=== PATIENT | male | born 1950 | race Caucasian/White ===

== ENCOUNTER 2017-01-21 14:05 | Emergency (ER) | payer MEDICARE, BC, OTHER ==
[2017-01-21 14:19] VITALS: BP 137/75
--- NOTE | 2017-01-21 14:52 | EDM.PDOC ---
ED HPI Trauma - General Chief Complaint: Lower Extremity Injury/Pain Stated Complaint: Foot pain Time Seen by Provider: 01/21/17 14:30 Source: Reports: Patient, Old records, RN notes reviewed History Limitations: Reports: No limitations - History of Present Illness INITIAL COMMENTS - FREE TEXT/NARRATIVE: 66 year old male presents to the ED today with right medial mid-foot pain for the past 24 hours. The area is red and warm to touch. He rates the pain 8/10 and is worse when bearing weight. He had no injury to the foot. He had similar symptoms in September of this year and was diagnosed with gout. He improved with NSAIDs and was doing well until now. No fever or chills. No additional joint pain. Allergies/ADRs: Allergies No Known Allergies Allergy (Verified 01/21/17 14:11) Home Medications: Ambulatory Orders Aspirin 80 mg PO DAILY 10/09/16 [Confirmed 01/21/17] Lisinopril 20 mg PO DAILY 10/09/16 [Confirmed 01/21/17] Metoprolol Succinate [Toprol XL] 25 mg PO WITHBREAKFAST 10/09/16 [Confirmed ] atorvaSTATin [Lipitor] 20 mg PO DAILY 10/09/16 [Confirmed 01/21/17] Ciclopirox/Nail Lacquer Removr [Cnl 8 Nail Kit] 1 applic TP DAILY #1 kit predniSONE [Prednisone] 40 mg PO DAILY #10 tablet 01/21/17 Past Medical History HEENT History: Reports: Impaired vision Cardiovascular History: Reports: Hypertension Musculoskeletal History: Reports: Osteoarthritis - Past Surgical History Cardiovascular Surgical History: Reports: Carotid stents GI Surgical History: Reports: Colonoscopy Other Neurological Surgeries/Procedures: low back pain Social & Family History - Family History Family Medical History: Noncontributory - Tobacco Use Smoking Status *Q: Never Smoker - Caffeine Use Caffeine Use: Reports: Coffee - Recreational Drug Use Recreational Drug Use: No Review of Systems - Review of Systems Review Of Systems: See Below Constitutional: Reports: no symptoms. Denies: chills, fever Respiratory: Reports: No Symptoms. Denies: Shortness of Breath Cardiovascular: Denies: chest pain Musculoskeletal: Reports: foot pain Skin: Reports: erythema. Denies: bruising Neurological: Reports: No Symptoms. Denies: Numbness, Tingling, Weakness Trauma Exam - Physical Exam Exam: See Below Exam Limited By: No limitations General Appearance: Reports: alert, WD/WN, no apparent distress Respiratory Exam: Reports: no respiratory distress, lungs clear, normal breath sounds Cardiovascular: Reports: regular rate, rhythm Extremities: Reports: no evidence of injury, normal range of motion, no pedal edema, tenderness (right medial foot ), other (erythema noted to right medial mid-foot. no deformity. CMS intact. ) Neurologic: Reports: no motor/sensory deficits, alert, normal mood/affect Course - Vital Signs Last Recorded V/S: Last Vital Signs Temp 97.8 F 01/21/17 14:16 Pulse 71 01/21/17 14:16 Resp 18 01/21/17 14:16 BP 137/75 01/21/17 14:16 Pulse Ox 99 01/21/17 14:16 - Re-Assessments/Exams Free Text/Narrative Re-Assessment/Exam: Will treat with Prednisone. Offered pain medication but patient declined. He is also requesting medication for toenail fungus. [facility] Discharge instructions as documented. Departure - Departure Time of Disposition: 14:45 Disposition: Home, Self-Care 01 Condition: good Clinical Impression: Onychomadesis of toenail Gout attack Qualifiers: Gout site: foot Gout etiology: unspecified cause Laterality: right Qualified Code(s): M10.9 - Gout, unspecified Prescriptions: Ciclopirox/Nail Lacquer Removr [Cnl 8 Nail Kit] 1 applic TP DAILY #1 kit predniSONE [Prednisone] 40 mg PO DAILY #10 tablet Instructions: Gout Forms: ED Department Discharge Additional Instructions: Prednisone 40mg daily for 5 days Hold aspirin while taking prednisone No Ibuprofen or naproxyn while on prednisone Tylenol 1000mg every 8 hours as needed for pain Return to ER if symptoms worsen [facility] Ciclopirox 8% topical solution to toe nails once a day. Nail fungus can take months to resolve.
== END 2017-01-21 15:15 | disposition home or self-care (01) ==
LOC: JD.ED 14:05
DX: L60.8 Other nail disorders (principal); M10.9 Gout, unspecified; I10 Essential (primary) hypertension; Z79.82 Long term (current) use of aspirin; Z79.899 Other long term (current) drug therapy
CPT/HCPCS: 99283

== ENCOUNTER 2017-03-31 09:50 | Emergency (ER) | payer MEDICARE, BC, OTHER ==
--- NOTE | 2017-03-31 10:42 | EDM.PDOC ---
ED HPI GENERAL MEDICAL PROBLEM - General Chief Complaint: ENT Problem Stated Complaint: SORE THROAT Time Seen by Provider: 03/31/17 10:17 Source of Information: Reports: Patient, RN Notes Reviewed - History of Present Illness INITIAL COMMENTS - FREE TEXT/NARRATIVE: 66-year-old male comes in with sore throat. This started about 5-7 days ago but has become much more uncomfortable the past 2 or 3 days. Increased pain with swallowing. There's been some very slight nasal and sinus congestion but nothing major. No fever or chills. Occasional nonproductive cough. Middle Throat Pain Score (Numeric/FACES): 9 - Related Data Allergies Allergy/AdvReac Type Severity Reaction Status Date / Time No Known Allergies Allergy Verified 03/31/17 10:07 Home Meds: Home Meds Aspirin 80 mg PO DAILY 10/09/16 [History] Lisinopril 20 mg PO DAILY 10/09/16 [History] Metoprolol Succinate [Toprol XL] 25 mg PO WITHBREAKFAST 10/09/16 [History] atorvaSTATin [Lipitor] 20 mg PO DAILY 10/09/16 [History] Past Medical History HEENT History: Reports: Impaired Vision Cardiovascular History: Reports: Stents Respiratory History: Reports: None Gastrointestinal History: Reports: None Genitourinary History: Reports: None Musculoskeletal History: Reports: Osteoarthritis Neurological History: Reports: None Psychiatric History: Reports: None Endocrine/Metabolic History: Reports: None Hematologic History: Reports: None Oncologic (Cancer) History: Reports: None Dermatologic History: Reports: None - Infectious Disease History Infectious Disease History: Reports: None - Past Surgical History Cardiovascular Surgical History: Reports: Carotid Stents GI Surgical History: Reports: Colonoscopy Other Neurological Surgeries/Procedures: low back pain Social & Family History - Family History Family Medical History: Noncontributory - Tobacco Use Smoking Status *Q: Former Smoker Years of Tobacco use: 18 Packs/Tins Daily: 1 Used Tobacco, but Quit: Yes Month Tobacco Last Used: sep 1999 - Caffeine Use Caffeine Use: Reports: Coffee - Recreational Drug Use Recreational Drug Use: No ED ROS ENT - Review of Systems Review Of Systems: See Below Constitutional: Denies: Fever, Chills HEENT: Reports: Throat Pain. Denies: Sinus Problem Respiratory: Reports: Cough. Denies: Shortness of Breath, Pleuritic Chest Pain Cardiovascular: Denies: Chest Pain GI/Abdominal: Denies: Abdominal Pain, Nausea, Vomiting Musculoskeletal: Reports: No Symptoms Skin: Reports: No Symptoms Neurological: Reports: No Symptoms ED EXAM, ENT - Physical Exam Exam: See Below General Appearance: Alert, Mild Distress Nose: Normal Inspection Mouth/Throat: Throat Pain (Posterior throat is inflamed, there are some very small areas of vesiculation type lesions present) Head: Atraumatic. No: Facial Swelling Neck: Supple. No: Lymphadenopathy (L), Lymphadenopathy (R) Respiratory/Chest: No Respiratory Distress, Lungs Clear, Normal Breath Sounds Cardiovascular: Regular Rate, Rhythm Extremities: Normal Inspection, Normal Range of Motion Neurological: Alert, Oriented, No Motor/Sensory Deficits Skin: Warm, Dry, Normal Color Course - Vital Signs Last Recorded V/S: Last Vital Signs Temp 97.9 F 03/31/17 10:10 Pulse 66 03/31/17 10:10 Resp 16 03/31/17 10:10 BP 121/77 03/31/17 10:10 Pulse Ox 98 03/31/17 10:10 - Re-Assessments/Exams Free Text/Narrative Re-Assessment/Exam: 03/31/17 10:50 Posterior throat is quite inflamed. I am going to start him on Pen-Vee K 500 mg 4 times a day for 1 week although this could well be summer viral type infection with a few scattered lesions posterior throat along with quite markedly erythema. Also going to prescribe some miracle mouthwash to use every 4 -6 hours as needed. These prescriptions have been called in to [facility]. Departure - Departure Time of Disposition: 10:42 Disposition: Home, Self-Care 01 Condition: Fair Clinical Impression: Pharyngitis Qualifiers: Pharyngitis/tonsillitis etiology: unspecified etiology Qualified Code(s): J02.9 - Acute pharyngitis, unspecified - Discharge Information Referrals: PCP,None [Primary Care Provider] - Forms: ED Department Discharge Additional Instructions: PenVK 500 mg 4 times daily for 1 week or until gone, miracle mouthwash 1-2 teaspoons, swish, gargle, spit every 4-6 hours for throat discomfort as needed, alternate Tylenol and ibuprofen as needed, symptoms should gradually resolve over the next 3-5 days, follow-up clinic as needed, return to ED as needed. [facility]
== END 2017-03-31 11:11 | disposition home or self-care (01) ==
LOC: JD.ED 09:50
CPT/HCPCS: 99282; 99283

== ENCOUNTER 2017-12-04 14:51 | Emergency (ER) | payer MEDICARE, OTHER ==
[2017-12-04 15:12] VITALS: BP 125/75
--- NOTE | 2017-12-04 15:47 | EDM.PDOC ---
ED HPI GENERAL MEDICAL PROBLEM - General Chief Complaint: Cardiovascular Problem Stated Complaint: RACING HEART Time Seen by Provider: 12/04/17 15:03 Source of Information: Reports: Patient History Limitations: Reports: No Limitations - History of Present Illness INITIAL COMMENTS - FREE TEXT/NARRATIVE: 67 y/o M with palpitations, sent from [facility] for eval. States he has had a cough for a few days. Not productive, no fever, no SOB. Saw PCP at [facility] and mentioned that he's also had palpitations so was sent here for eval of palpitations. States he's had occasional brief episodes of feeling like his heart is racing and irregular. no provoking factor. Had episode this AM while at rest that lasted a few minutes. No chest pain. No SOB. No syncope or pre- syncope. No lower extremity pain/swelling. No recent change in medications. Drinks around 4 cups of coffee daily, has been doing this for years. - Related Data Allergies Allergy/AdvReac Type Severity Reaction Status Date / Time No Known Allergies Allergy Verified 03/31/17 10:07 Home Meds: Home Meds Aspirin 80 mg PO DAILY 10/09/16 [History] Lisinopril 20 mg PO DAILY 10/09/16 [History] Metoprolol Succinate [Toprol XL] 25 mg PO WITHBREAKFAST 10/09/16 [History] atorvaSTATin [Lipitor] 20 mg PO DAILY 10/09/16 [History] Clopidogrel Bisulfate [Clopidogrel] 75 mg PO ACDINNER 12/04/17 [History] Past Medical History HEENT History: Reports: Impaired Vision Cardiovascular History: Reports: Stents Respiratory History: Reports: None Gastrointestinal History: Reports: None Genitourinary History: Reports: None Musculoskeletal History: Reports: Osteoarthritis Neurological History: Reports: None Psychiatric History: Reports: None Endocrine/Metabolic History: Reports: None Hematologic History: Reports: None Oncologic (Cancer) History: Reports: None Dermatologic History: Reports: None - Infectious Disease History Infectious Disease History: Reports: None - Past Surgical History Cardiovascular Surgical History: Reports: Carotid Stents GI Surgical History: Reports: Colonoscopy Other Neurological Surgeries/Procedures: low back pain Social & Family History - Family History Family Medical History: Noncontributory - Tobacco Use Smoking Status *Q: Unknown Ever Smoked Years of Tobacco use: 18 Packs/Tins Daily: 1 Used Tobacco, but Quit: Yes Month/Year Tobacco Last Used: sep 1999 - Caffeine Use Caffeine Use: Reports: None - Recreational Drug Use Recreational Drug Use: No ED ROS GENERAL - Review of Systems Review Of Systems: See Below Constitutional: Reports: Malaise. Denies: Fever HEENT: Reports: No Symptoms Respiratory: Reports: Cough. Denies: Shortness of Breath Cardiovascular: Denies: Chest Pain, Edema, Syncope Endocrine: Reports: No Symptoms GI/Abdominal: Denies: Diarrhea, Vomiting Neurological: Denies: Dizziness ED EXAM, GENERAL - Physical Exam Exam: See Below Exam Limited By: No Limitations General Appearance: Alert, WD/WN, No Apparent Distress Eye Exam: Bilateral Eye: Normal Inspection Ears: Normal External Exam Nose: Normal Inspection, Normal Mucosa Throat/Mouth: Normal Inspection, Normal Oropharynx, Normal Voice Head: Atraumatic, Normocephalic Neck: Normal Inspection, Supple Respiratory/Chest: No Respiratory Distress, Lungs Clear, Normal Breath Sounds, Chest Non-Tender Cardiovascular: Normal Peripheral Pulses, Regular Rate, Rhythm, No Edema, No Gallop, No Murmur GI/Abdominal: Soft, Non-Tender, No Distention Neurological: Alert, Oriented, Normal Cognition, No Motor/Sensory Deficits Psychiatric: Normal Affect, Normal Mood Skin Exam: Warm, Dry, Intact, Normal Color, No Rash Course - Vital Signs Last Recorded V/S: Last Vital Signs Temp 36.8 C 12/04/17 15:07 Pulse 66 12/04/17 15:07 Resp 18 12/04/17 15:07 BP 125/75 12/04/17 15:07 Pulse Ox 100 12/04/17 15:07 - Orders/Labs/Meds Orders: Active Orders 24 hr Category Date Time Status EKG 12 Lead [EKG Documentation Completion] [RC] STAT Care 12/04/17 15:14 Active Chest 2V [CR] Stat Exams 12/04/17 15:41 Taken Labs: Laboratory Tests 12/04/17 12/04/17 12/04/17 Range/Units 15:23 15:23 15:23 WBC 7.39 (4.23-9.07) K/mm3 RBC 4.69 (4.63-6.08) M/mm3 Hgb 14.5 (13.7-17.5) gm/L Hct 42.2 (40.1-51.0) % MCV 90.0 (79.0-92.2) fl MCH 30.9 (25.7-32.2) pg MCHC 34.4 (32.2-35.5) g/dl RDW Std Deviation 44.1 H (35.1-43.9) fL Plt Count 166 (163-337) K/mm3 MPV 10.4 (9.4-12.3) fl Neut % (Auto) 54.5 (34.0-67.9) % Lymph % (Auto) 24.9 (21.8-53.1) % [place] % (Auto) 16.5 H (5.3-12.2) % Eos % (Auto) 3.8 (0.8-7.0) Baso % (Auto) 0.3 (0.1-1.2) % Neut # (Auto) 4.03 (1.78-5.38) K/mm3 Lymph # (Auto) 1.84 (1.32-3.57) K/mm3 [place] # (Auto) 1.22 H (0.30-0.82) K/mm3 Eos # (Auto) 0.28 (0.04-0.54) K/mm3 Baso # (Auto) 0.02 (0.01-0.08) K/mm3 Manual Slide Review Normal smear Sodium 141 (136-145) mEq/L Potassium 3.6 (3.5-5.1) mEq/L Chloride 105 (98-107) mEq/L Carbon Dioxide 25 (21-32) mEq/L Anion Gap 14.6 (5-15) BUN 24 H (7-18) mg/dL Creatinine 1.0 (0.7-1.3) mg/dL Est Cr Clr Drug Dosing 74.01 mL/min Estimated GFR (MDRD) > 60 (>60) mL/min BUN/Creatinine Ratio 24.0 H (14-18) Glucose 108 (80-115) mg/dL Calcium 9.3 (8.5-10.1) mg/dL Magnesium 1.7 L (1.8-2.4) mg/dl Total Bilirubin 0.5 (0.2-1.0) mg/dL AST 20 (15-37) U/L ALT 24 (16-63) U/L Alkaline Phosphatase 80 (46-116) U/L Troponin I < 0.017 (0.00-0.056) ng/mL NT-Pro-B Natriuret Pep 149 H (0-125) pg/mL Total Protein 6.9 (6.4-8.2) g/dl Albumin 3.8 (3.4-5.0) g/dl Globulin 3.1 gm/dL Albumin/Globulin Ratio 1.2 (1-2) Meds: Medications Discontinued Medications Generic Name Dose Route Start Last Admin Trade Name Samantha PRN Reason Stop Dose Admin Magnesium Oxide 800 mg 12/04/17 16:38 12/04/17 16:50 Magnesium Oxide PO 12/04/17 16:39 800 mg ONETIME ONE Administration - Re-Assessments/Exams Free Text/Narrative Re-Assessment/Exam: 12/04/17 15:43 EKG shows NSR with occasional PVC's. No evidence of ischemia or arrhythmia at this time. Intervals normal. On the monitor, there are rare PVC's. His HR is in the 60's. He is well appearing and has had no chest pain, shortness of breath, pre-syncope, or any other concerning symptoms. His caffeine intake is significant (4 cups of coffee daily) but this is no change compared to prior. Discussed that he could try to reduce caffeine to see if palpitations improve. If labs OK will dc, he can f/u with PCP for further workup as needed. 12/04/17 16:55 CXR shows no acute abnormality. Discussed results with patient. He continues to feel well. On monitor still NSR, no PVC's while I was in the room. Magnesium minimally low at 1.7, will replete with oral mag and encouraged pt to have this rechecked by PCP. He's not on a diuretic. Discussed return precautions. Departure - Departure Time of Disposition: 16:30 Disposition: Home, Self-Care 01 Clinical Impression: Palpitations, PVCs (premature ventricular contractions) Instructions: Premature Ventricular Contraction, Palpitations, [id number] Referrals: Ilana Love DO [Primary Care Provider] - Forms: ED Department Discharge Additional Instructions: 1. [facility] for further care, ideally in 1-2 weeks. Meanwhile, try to reduce caffeine intake. Your magnesium level was slightly low - ask your primary care provider to recheck it at your next followup visit. 2. Return to the ED if you have: - lightheadedness/feeling like you're going to pass out - chest pain - difficulty breathing - swelling in your legs - any other concerning symptoms - My Orders Last 24 Hours: My Active Orders 12/04/17 15:14 EKG 12 Lead [EKG Documentation Completion] [RC] STAT 12/04/17 15:41 Chest 2V [CR] Stat - Assessment/Plan Last 24 Hours: My Active Orders 12/04/17 15:14 EKG 12 Lead [EKG Documentation Completion] [RC] STAT 12/04/17 15:41 Chest 2V [CR] Stat
[2017-12-04] MEDS ORDERED: Magnesium Oxide 400 MG Tab PO ONE (16:38)
--- NOTE | 2017-12-05 08:21 | CR ---
Chest: Two views of the chest were obtained. Comparison: No prior chest x-ray. Heart size and mediastinum are normal. Lungs are clear. Diaphragms are slightly flattened on the lateral view suggesting emphysematous change. Minimal degenerative spurring is noted within the spine. Old healed left clavicle fracture is seen. Impression: 1. Emphysematous change. Other incidental findings. 2. Nothing acute is appreciated on two-view chest x-ray. Diagnostic code #2
== END 2017-12-04 16:47 | disposition home or self-care (01) ==
LOC: JD.ED 14:51
DX: I49.3 Ventricular premature depolarization (principal); R00.2 Palpitations; Z87.891 Personal history of nicotine dependence; Z79.82 Long term (current) use of aspirin; Z79.02 Long term (current) use of antithrombotics/antiplatelets; Z79.899 Other long term (current) drug therapy
CPT/HCPCS: 36415; 71046; 80053; 83735; 83880; 84484; 85025; 93005; 99285; A9270; 93010; 99284-25

== ENCOUNTER 2020-01-30 18:56 | Emergency (ER) | payer MEDICARE, BC ==
[2020-01-30 19:24] VITALS: BP 145/75; PULSE 100
--- NOTE | 2020-01-30 19:41 | EDM.PDOC ---
ED HPI GENERAL MEDICAL PROBLEM - General Chief Complaint: Back Pain or Injury Stated Complaint: back and rib back pain fell off skidster Time Seen by Provider: 01/30/20 19:13 Source of Information: Reports: Patient History Limitations: Reports: No Limitations - History of Present Illness INITIAL COMMENTS - FREE TEXT/NARRATIVE: This is a 69-year-old male. About 2 weeks ago he was climbing out of his skid steer and slipped and fell against the tines and hit his right flank and as he was trying to move he fell scraping that area as well. He does take aspirin and Plavix because of a cardiac stent. He noted shortly thereafter that he had marked swelling in that right flank and bruising. He says has gone down a bit but is still discolored and bruised and he has lots of pain in his lower rib area and rib cage. Because he has not been healed completely in these last 2 weeks he comes to the ER for evaluation. He says he still been working and still been doing things but his ribs hurt and that flank has not completely resolved. He denies any urination of blood after this event. He denies any other acute symptoms. 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 - Related Data Allergies Allergy/AdvReac Type Severity Reaction Status Date / Time No Known Allergies Allergy Verified 01/30/20 19:12 Home Meds: Home Meds Aspirin 80 mg PO DAILY 10/09/16 [History] Lisinopril 20 mg PO DAILY 10/09/16 [History] Metoprolol Succinate [Toprol XL] 25 mg PO WITHBREAKFAST 10/09/16 [History] atorvaSTATin [Lipitor] 20 mg PO DAILY 10/09/16 [History] Clopidogrel Bisulfate [Clopidogrel] 75 mg PO ACDINNER 12/04/17 [History] Orphenadrine [Norflex] 100 mg PO BID PRN #20 tab 01/30/20 [Rx] Past Medical History HEENT History: Reports: Impaired Vision Cardiovascular History: Reports: Stents Respiratory History: Reports: None Gastrointestinal History: Reports: None Genitourinary History: Reports: None Musculoskeletal History: Reports: Osteoarthritis Neurological History: Reports: None Psychiatric History: Reports: None Endocrine/Metabolic History: Reports: None Hematologic History: Reports: None Oncologic (Cancer) History: Reports: None Dermatologic History: Reports: None - Infectious Disease History Infectious Disease History: Reports: None - Past Surgical History Cardiovascular Surgical History: Reports: Carotid Stents GI Surgical History: Reports: Colonoscopy Other Neurological Surgeries/Procedures: low back pain Social & Family History - Family History Family Medical History: Noncontributory - Caffeine Use Caffeine Use: Reports: None ED ROS GENERAL - Review of Systems Review Of Systems: See Below Constitutional: Denies: Fever, Chills HEENT: Reports: No Symptoms Respiratory: Reports: Other (Right-sided rib pain). Denies: Shortness of Breath Cardiovascular: Reports: No Symptoms Endocrine: Reports: No Symptoms GI/Abdominal: Denies: Abdominal Pain, Nausea, Vomiting : Reports: Flank Pain, Other (Right flank hematoma) Musculoskeletal: Reports: No Symptoms Skin: Reports: Bruising, Other (Large bruising about to hand with sizes though it is gone down considerably he does have a small hard area there in the middle of the bruising to suggest a resolving hematoma) Neurological: Reports: No Symptoms Psychiatric: Reports: No Symptoms Hematologic/Lymphatic: Reports: No Symptoms ED EXAM,LOWER BACK PAIN/INJURY - Physical Exam Exam: See Below Exam Limited By: No Limitations General Appearance: Alert, WD/WN, No Apparent Distress Ears: Normal External Exam Nose: Normal Inspection Throat/Mouth: Normal Inspection, Normal Lips, Normal Voice, No Airway Compromise Head: Normocephalic Neck: Supple Respiratory/Chest: No Respiratory Distress, Lungs Clear, Normal Breath Sounds, Other (3 tender up underneath the right lower ribs laterally though I do not feel any crepitus.) Cardiovascular: Regular Rate, Rhythm, No Murmur GI/Abdominal: Soft, Non-Tender, Other (Right flank he has a bruised area about the size of his hand with this discoloration still in the middle he is got a hard knot suggesting a resolving hematoma) Back Exam: Normal Inspection, Full Range of Motion Extremities: Normal Inspection, Normal Range of Motion Neurological: Alert, Normal Mood/Affect Psychiatric: Normal Affect, Normal Mood Skin Exam: Warm, Dry Course - Vital Signs Last Recorded V/S: Last Vital Signs Temp 97.7 F 01/30/20 19:14 Pulse 100 01/30/20 19:14 Resp 18 01/30/20 19:14 BP 145/75 H 01/30/20 19:14 Pulse Ox 100 01/30/20 19:14 - Radiology Interpretation Free Text/Narrative:: Right rib x-rays show a and fracture of the anterior right 11th rib. He also has a small nodule in the base of the right lung and it was suggested to get a CT scan. There was no other acute abnormalities. Ultrasound of the abdomen reveals a normal liver and kidneys without bruising. He does have a single large gallstone in the gallbladder but there is no wall thickening and no biliary duct dilatation. - Re-Assessments/Exams Free Text/Narrative Re-Assessment/Exam: 01/30/20 21:11 To the patient regarding the fractured rib and the nodule in the right lung base as well as no damage to the liver or the kidneys though he does have a gallstone. I encouraged him to breathe deeply and I will give him some medicine for muscle spasms. I indicated that to wrap that rib could be deleterious since he will not breathe deep and he might develop pneumonia so it is best not to wrap them. He states he understands. Departure - Departure Time of Disposition: 21:12 Disposition: Home, Self-Care 01 Condition: Fair Clinical Impression: Right lower lobe pulmonary nodule, Gallbladder stone without cholecystitis or obstruction Right rib fracture Qualifiers: Encounter type: initial encounter Rib fracture type: single rib Fracture type: closed Qualified Code(s): S22.31XA - Fracture of one rib, right side, initial encounter for closed fracture Right flank hematoma Qualifiers: Encounter type: initial encounter Qualified Code(s): S30.1XXA - Contusion of abdominal wall, initial encounter - Discharge Information *PRESCRIPTION DRUG MONITORING PROGRAM REVIEWED*: Not Applicable *COPY OF PRESCRIPTION DRUG MONITORING REPORT IN PATIENT AIDEN: Not Applicable Prescriptions: Orphenadrine [Norflex] 100 mg PO BID PRN #20 tab PRN Reason: Spasms Instructions: Rib Fracture, [id number], Cholelithiasis, [id number], Pulmonary Nodule Referrals: Zeinab Madden MD [Primary Care Provider] - Forms: ED Department Discharge Additional Instructions: Gentle activity due to that right fractured rib, remember to breathe deep frequently to the area 8 the lungs so you do not develop pneumonia, take the Norflex especially at nighttime to help with sleep, follow-up with your family doctor regarding evaluation of that right pulmonary nodule and also your gallbladder stones, return to the ER if needed Sepsis Event Note - Evaluation Sepsis Screening Result: No Definite Risk - Focused Exam Vital Signs: Vital Signs Temp Pulse Resp BP Pulse Ox 01/30/20 19:14 97.7 F 100 18 145/75 H 100 Date Exam was Performed: 01/30/20 Time Exam was Performed: 21:10
--- NOTE | 2020-01-30 20:00 | CR ---
Chest and right ribs: Frontal view of the chest was obtained as well as 4 views of the right ribs. Comparison: Prior chest x-ray of 12/04/17. Heart size and mediastinum are normal. Small nodular density within the right base is seen possibly due to granuloma although noncontrast chest CT will be recommended to confirm. Lungs otherwise are clear. Bony structures shows a probable old healed left clavicle fracture. Minimal deformity is seen within the anterior right 11th rib which appears to represent an acute fracture. No additional rib abnormality is appreciated. Impression: 1. Probable acute fracture within the anterior right 11th rib. 2. Small nodule within the right lung base. Recommend noncontrast chest CT to hopefully exclude nodule or confirm granuloma. 3. No additional abnormality is appreciated. Diagnostic code #9 This report was dictated in MDT
--- NOTE | 2020-01-30 20:32 | US ---
Abdominal ultrasound: Multiple real-time images of the abdomen were obtained. Comparison: No previous abdominal ultrasound or CT exam is available. Findings: Single large gallstone is noted within the gallbladder. This gallstone measures approximately 2.2 cm. No gallbladder wall thickening or biliary duct dilatation is seen. Liver shows no focal parenchymal abnormality. Right and left kidneys show no hydronephrosis or mass. Right kidney measures 10.4 cm in length. Left kidney measures 11.0 cm in length. Spleen is within normal limits. Spleen is normal in size. Aorta shows no aneurysm. Visualized pancreas appears within normal limits. Inferior vena cava is patent. Portal vein shows normal hepatopedal flow. Impression: 1. Single large gallstone within the gallbladder. No gallbladder wall thickening or biliary duct dilatation is seen. 2. No additional abnormality is appreciated on abdominal ultrasound exam. Diagnostic code #2 This report was dictated in MDT
== END 2020-01-30 21:22 | disposition home or self-care (01) ==
LOC: JD.ED 18:56
DX: K80.20 Calculus of gallbladder without cholecystitis without obstruction (principal); S22.31XA Fracture of one rib, right side, initial encounter for closed fracture; S30.1XXA Contusion of abdominal wall, initial encounter; M19.90 Unspecified osteoarthritis, unspecified site; Z79.82 Long term (current) use of aspirin; Z79.02 Long term (current) use of antithrombotics/antiplatelets; Z79.899 Other long term (current) drug therapy; R91.1 Solitary pulmonary nodule; W01.198A Fall on same level from slipping, tripping and stumbling with subsequent striking against other object, initial encounter
CPT/HCPCS: 71101-26-RT; 71101-RT; 76700; 76700-26; 99284; 99284-25

== ENCOUNTER 2024-01-10 09:59 | Day surgery (SDC) | payer OTHER, MEDICARE ==
[2024-01-10] MEDS: Polymyxin B/Trimethoprim 10 ML Bottle EYELF SCH (10:08)
[2024-01-10] MEDS: Brimonidine 0.2% Ophth Soln 5 ML Bottle EYELF SCH (10:13)
[2024-01-10] MEDS: Phenylephrine 2.5% Ophth Soln 2 ML Bot EYELF SCH (10:18)
[2024-01-10] MEDS ORDERED: Ondansetron 4 MG/2 ML SDV IVPUSH PRN (10:22)
[2024-01-10] MEDS: Tropicamide 1% Ophth Soln 3 ML Bottle EYELF SCH (10:23)
[2024-01-10] MEDS: Tetracaine HCl/PF 0.5% 4 ML Bottle EYEBOTH SCH (11:19)
[2024-01-10] MEDS: Cefuroxime 10 MG/ML SYRINGE EYELF SCH (11:47)
[2024-01-10] MEDS: Lidocaine 1% PF 2 ML SDV INJECT SCH (11:47)
[2024-01-10] MEDS: Pilocarpine 4% Ophth Soln 15 ML Bot EYELF SCH (11:47)
[2024-01-10 12:17] VITALS: BP 102/65; PULSE 62
== END 2024-01-10 12:16 | disposition home or self-care (01) ==
LOC: JD.SDS 09:59
PROVIDERS: ATTEND Ophthalmology
DX: H25.813 Combined forms of age-related cataract, bilateral (principal); H43.812 Vitreous degeneration, left eye; H11.153 Pinguecula, bilateral; H40.033 Anatomical narrow angle, bilateral; H11.823 Conjunctivochalasis, bilateral; H17.812 Minor opacity of cornea, left eye; H02.831 Dermatochalasis of right upper eyelid; H02.834 Dermatochalasis of left upper eyelid; Z79.899 Other long term (current) drug therapy; Z87.891 Personal history of nicotine dependence; I10 Essential (primary) hypertension; E78.00 Pure hypercholesterolemia, unspecified
CPT/HCPCS: 66982; A9270; J0697; 00142; 99100; J3490; V2788

== ENCOUNTER 2024-02-14 08:52 | Day surgery (SDC) | payer OTHER, MEDICARE ==
[2024-02-14] MEDS: Polymyxin B/Trimethoprim 10 ML Bottle EYERT SCH (09:29)
[2024-02-14] MEDS: Brimonidine 0.2% Ophth Soln 5 ML Bottle EYERT SCH (09:36)
[2024-02-14] MEDS: Phenylephrine 2.5% Ophth Soln 2 ML Bot EYERT SCH (09:41)
[2024-02-14] MEDS: Tropicamide 1% Ophth Soln 3 ML Bottle EYERT SCH (09:45)
[2024-02-14] MEDS: Tetracaine HCl/PF 0.5% 4 ML Bottle EYEBOTH SCH (10:46)
[2024-02-14] MEDS: Lidocaine 1% PF 2 ML SDV INJECT SCH (11:08)
[2024-02-14] MEDS: Cefuroxime 10 MG/ML SYRINGE EYERT SCH (11:19)
[2024-02-14] MEDS: Pilocarpine 4% Ophth Soln 15 ML Bot EYERT SCH (11:26)
[2024-02-14 11:35] VITALS: BP 164/85; PULSE 44
== END 2024-02-14 11:34 | disposition home or self-care (01) ==
LOC: JD.SDS 08:52
PROVIDERS: ATTEND Ophthalmology
DX: H25.811 Combined forms of age-related cataract, right eye (principal); H21.81 Floppy iris syndrome; H21.41 Pupillary membranes, right eye; I10 Essential (primary) hypertension; E78.2 Mixed hyperlipidemia; Z87.891 Personal history of nicotine dependence; Z79.82 Long term (current) use of aspirin; Z79.899 Other long term (current) drug therapy
CPT/HCPCS: 66982; A9270; J0697; J3490

== ENCOUNTER 2025-07-30 02:17 | Emergency (ER) | payer MEDICARE, OTHER ==
[2025-07-30] MEDS ORDERED: Sodium Chloride 0.9% 10 ML Syringe FLUSH PRN (03:01)
[2025-07-30 03:16] LABS: BASOPHILS ABSOLUTE AUTO 0.1 K/mm3 (0.0-0.2); BASOPHILS PERCENT AUTO 0.4 % (0.0-1.0); EOSINOPHILS ABSOLUTE AUTO 0.2 K/mm3 (0.0-0.4); EOSINOPHILS PERCENT AUTO 2.0 % (0.0-6.0); IMMATURE GRAN ABSOLUTE AUTO 0.03 K/mm3 (0.00-0.05); IMMATURE GRAN PERCENT AUTO 0.3 % (0.0-0.4); LYMPHOCYTES ABSOLUTE AUTO 2.6 K/mm3 (1.0-4.8); LYMPHOCYTES PERCENT AUTO 22.0 % (24.0-44.0); MEAN PLATELET VOLUME 10.7 fl (9.4-12.4); MONOCYTES ABSOLUTE AUTO 1.5 K/mm3 (0.0-0.8); MONOCYTES PERCENT AUTO 12.4 % (0.0-8.0); NEUTROPHILS ABSOLUTE AUTO 7.5 K/mm3 (1.8-7.7); NEUTROPHILS PERCENT AUTO 62.9 % (41.0-71.0); NRBC ABSOLUTE 0.00 (0.00-0.02); NRBC PERCENT 0.0 % (0.0-0.2); PLATELET COUNT,PLT 218 K/mm3 (150-400); RED BLOOD CELL COUNT 4.54 M/mm3 (4.52-5.90); WHITE BLOOD CELL COUNT,WBC 11.92 K/mm3 (3.9-11.3)
[2025-07-30 03:36] LABS: BLOOD UREA NITROGEN,BUN 18.0 mg/dL (7-18); CARBON DIOXIDE,CO2 25.0 mEq/L (21-32); CHLORIDE,CL 103.0 mEq/L (98-107); CREATININE 0.8 mg/dL (0.7-1.3); EST CRCL DRUG DOSING (CG) 81.01 mL/min; ESTIMATED GFR 93.0 mL/min (>60); GLUCOSE RANDOM 100.0 mg/dL (70-99); SODIUM,NA 138.0 mEq/L (136-145)
[2025-07-30 03:43] LABS: POTASSIUM,K 4.3 mEq/L (3.5-5.1)
[2025-07-30 03:45] LABS: LACTIC ACID 0.6 mmol/L (0.4-2.0)
[2025-07-30 04:52] VITALS: BP 136/75; PULSE 52
== END 2025-07-30 04:30 | disposition home or self-care (01) ==
LOC: JD.ED 02:17
DX: J18.9 Pneumonia, unspecified organism (principal); I10 Essential (primary) hypertension; Z95.5 Presence of coronary angioplasty implant and graft; Z87.891 Personal history of nicotine dependence; Z79.82 Long term (current) use of aspirin; Z79.899 Other long term (current) drug therapy
CPT/HCPCS: 36415; 71046; 80048; 83605; 85025; 87428; 96374; 99283; J0696; 99284